=== PATIENT | male | born 1965 | race American Indian/Alaskan Native ===

== ENCOUNTER 2017-01-10 09:37 | Outpatient (CLI) | payer OTHER ==
--- NOTE | 2017-01-10 12:00 | XRay Report ---
SKULL X-RAY, 2 VIEWS History: Screening for MRI. Findings: Previous frontal craniotomy changes are noted with metallic fixation devices in both frontal regions. No intraorbital foreign body. Dentures are noted. No calvarial lesion or fracture. Impression: Surgical changes in both frontal regions.
--- NOTE | 2017-01-10 13:54 | Magnetic Resonance Report ---
MRI OF THE BRAIN WITHOUT CONTRAST: HISTORY: Headache, frontal lobe injury PROCEDURE: Multiplanar, multisequence MR imaging of the brain without IV contrast was performed. FINDINGS: No comparison. There is cortical encephalomalacia in both anteromedial frontal lobes, left greater than right. There is also a rather large area of cystic encephalomalacia in the left frontal lobe measuring up to 5.0 x 2.5 cm. 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 The remaining brain parenchyma is within normal limits on all sequences. No evidence for diffusion restriction, hemorrhage, mass or extra-axial fluid collection. The midline structures are central. The basal cisterns are patent. Normal ventricular size. The orbital cavities and sella turcica demonstrate no abnormality. The visualized paranasal sinuses and mastoid air cells are well aerated. IMPRESSION: Bifrontal encephalomalacia, left greater than right, as outlined above. This could be posttraumatic or postsurgical in nature. Please correlate with the patient's clinical presentation. No acute intracranial process is appreciated.
== END 2017-01-10 09:38 | disposition home or self-care (01) ==
LOC: MRI 09:37
PROVIDERS: ATTEND Internal Medicine
DX: G93.89 Other specified disorders of brain (principal); S06.9X0D Unspecified intracranial injury without loss of consciousness, subsequent encounter; I10 Essential (primary) hypertension; Z98.890 Other specified postprocedural states; X58.XXXD Exposure to other specified factors, subsequent encounter
CPT/HCPCS: 70250; 70551